=== PATIENT | female | born 1955 | race Caucasian/White ===

== ENCOUNTER → 2020-03-26 | Outpatient (CLI) | payer SELFPAY ==
[~2020-03-26] MED LIST: ALPRAZOLAM2 M1 PO; AMLODIPINE BESYL5 MG PO; BISA5EC PO; CEPH500 PO; DICL75ER PO; LISI5 PO; METFORMIN HCL500 M2 PO; METOPROLOL TART50 M1 PO; MS Contin15 MG PO; NARCAN4 M1; OXYC5 PO; ROSUVASTATIN CA10 MG PO
== END | disposition home or self-care (01) ==
LOC: LAB EV 16:09
DX: G89.4 Chronic pain syndrome (principal)
CPT/HCPCS: G0480

== ENCOUNTER → 2020-04-04 | Outpatient (CLI) | payer MEDICARE, SELFPAY ==
[2020-04-11 17:09] LABS: 6-ACETYLMORPHINE Not Detected (.)
== END | disposition home or self-care (01) ==
LOC: LAB EV 11:50
PROVIDERS: Family Medicine
DX: G89.4 Chronic pain syndrome (principal)
CPT/HCPCS: G0480

== ENCOUNTER 2020-04-06 22:55 | Inpatient (IN) | payer MEDICARE ==
[~2020-04-06] VITALS: Ht 160 cm; Wt 89.8 kg
[2020-04-06 23:21] LABS: Source, Urine Catheter
[2020-04-06 23:23] LABS: Blood, Urine 5+ (Neg); Glucose Qualitative, Urine Neg (Neg); Ketones, Urine Neg (Neg); Leukocyte Esterase, Urine 2+ (Neg); Nitrite, Urine Pos (Neg); Protein, Urine 3+ (Neg); Specific Gravity, Urine 1.015 (1.003-1.022); Urobilinogen, Urine 2+ (Normal)
[2020-04-06 23:25] LABS: Appearance, Urine Cloudy (Clear); Bilirubin, Urine 2+ (Neg); Color, Urine Orange (P-Yellow)
[2020-04-06 23:25] LABS: BASOPHILS ABSOLUTE AUTO 0.02 K/mm3 (0.00-0.23); BASOPHILS PERCENT AUTO 1 % (0-2); EOSINOPHILS ABSOLUTE AUTO 0.05 K/mm3 (0.00-0.68); EOSINOPHILS PERCENT AUTO 1 % (0-6); Hematocrit 40.7 % (33.0-51.0); Hemoglobin 12.9 g/dL (11.5-16.0); IMMATURE GRAN ABSOLUTE AUTO 0.05 K/mm3 (0.00-0.10); IMMATURE GRAN PERCENT AUTO 1 % (0-1); LYMPHOCYTES ABSOLUTE AUTO 0.89 K/mm3 (0.84-5.20); LYMPHOCYTES PERCENT AUTO 26 % (21-46); MONOCYTES ABSOLUTE AUTO 0.03 K/mm3 (0.16-1.47); MONOCYTES PERCENT AUTO 1 % (4-13); Mean Corpuscular HGB 27.6 pg (26.0-34.0); Mean Corpuscular HGB Conc 31.7 g/dL (31.5-36.5); Mean Corpuscular Volume 87 fL (80-100); Mean Platelet Volume 10.4 fL (9.1-12.4); NEUTROPHILS ABSOLUTE AUTO 2.41 K/mm3 (1.96-9.15); NEUTROPHILS PERCENT AUTO 70 % (41-73); Platelet Count 208 K/mm3 (150-400); RDW Coefficient Variation 13.5 % (11.7-14.2); RDW Standard Deviation 43.3 fL (35.1-46.3); Red Blood Cell Count 4.67 M/mm3 (3.80-5.20); White Blood Cell Count 3.45 K/mm3 (4.00-11.30)
[2020-04-06 23:32] LABS: Bacteria Mod /hpf; Red Blood Cells, Urine TNTC /hpf (0-2); Squamous Epithelial Cells Rare /hpf (Few)
[2020-04-06 23:42] LABS: Alanine Aminotransfer (ALT/SGP 37 U/L (12-78); Albumin, Blood 3.3 g/dL (3.4-5.0); Albumin/Globulin Ratio 0.9 (0.8-1.8); Alk Phos 99 U/L (50-136); Anion Gap 6 mmol/L (6-16); Aspartate Aminotrans (AST/SGOT 24 U/L (12-37); Bilirubin, Total 0.7 mg/dL (0.1-1.0); Blood Urea Nitrogen 10 mg/dL (8-24); Bun/Creatinine Ratio 14.7 (12.0-20.0); CO2, Blood 27 mmol/L (21-32); Calcium, Blood 8.4 mg/dL (8.5-10.1); Chloride, Blood 109 mmol/L (98-108); Creatinine, Blood 0.68 mg/dL (0.40-1.00); Globulin, Blood 3.6 g/dL (2.2-4.0); Glomerular Filtration Rate >60 (60-); Glucose, Blood 121 mg/dL (70-99); Magnesium, Blood 1.7 mg/dL (1.6-2.4); Potassium, Blood 3.7 mmol/L (3.5-5.5); Sodium, Blood 142 mmol/L (136-145); Total Protein, Blood 6.9 g/dL (6.4-8.2); Troponin I <0.015 ng/mL (0.000-0.040)
[2020-04-07 00:19] LABS: Influenza A, PCR Negative (NEGATIVE); Influenza B, PCR Negative (NEGATIVE); Resp Syncytial Virus, PCR Negative (NEGATIVE); SARS-Cov-2 (COVID-19) PCR, MMC Negative (NEGATIVE)
[2020-04-07] MEDS ORDERED: DICL75ER PO (01:56)
[2020-04-07] MEDS ORDERED: METFORMIN HCL500 M2 PO (01:59)
[2020-04-07] MEDS ORDERED: ROSUVASTATIN CA10 MG PO (02:01)
[2020-04-07] MEDS ORDERED: LISI5 PO (02:02)
[2020-04-07] MEDS ORDERED: AMLODIPINE BESYL5 MG PO (02:02)
[2020-04-07] MEDS ORDERED: METOPROLOL TART50 M1 PO (02:02)
[2020-04-07] MEDS ORDERED: OXYC5 PO (02:03)
[2020-04-07] MEDS ORDERED: MS Contin15 MG PO (02:03)
[2020-04-07] MEDS ORDERED: ALPRAZOLAM2 M1 PO (02:04)
[2020-04-07] MEDS ORDERED: NARCAN4 M1 (02:06)
[2020-04-07] MEDS ORDERED: BISA5EC PO (02:07)
--- NOTE | 2020-04-07 03:13 | NUR ---
PT TO ROOM 328 AT 0240. PT A/O X4. SBA TO BED. SON AT BEDSIDE. PT ORIENTED TO ROOM AND CALL LIGHT. MED WITH TORADOL FOR PAIN. IV FLUIDS STARTED PER ORDERS. DECLINED FLU VACCINE. PT VISITING WITH SON AT THIS TIME, CALL LIGHT IN REACH.
--- NOTE | 2020-04-07 04:57 | NUR ---
SHIFT SUMMARY PT ADMITTED TO ROOM 328 AT ABOUT 0240. A/O X4, SBA UP TO BSC. PT HAS CHRONIC BACK/NECK/JOINT PAIN AND CHRONIC HEADACHES. HEAT PACK PROVIDED FOR COMFORT. MEDICATED PER ORDERS. REPORTS ABD PAIN MOSTLY IN RLQ BUT ACROSS ABD. IV FLUIDS INFUSING PER ORDERS. DENIES NAUSEA AT THIS TIME. LACTIC RE-DRAW WAS ELEVATED FROM INITIAL LACTIC; PHYSICIAN NOTIFIED - NO NEW ORDERS AT THIS TIME. TELE IN PLACE - IN SINUS RHYTHM. PT RESTING AT THIS TIME WITH CALL LIGHT IN REACH.
[2020-04-07 07:53] LABS: Hematocrit 36.8 % (33.0-51.0); Hemoglobin 11.8 g/dL (11.5-16.0); Mean Corpuscular HGB 27.8 pg (26.0-34.0); Mean Corpuscular HGB Conc 32.1 g/dL (31.5-36.5); Mean Corpuscular Volume 87 fL (80-100); Mean Platelet Volume 10.4 fL (9.1-12.4); Platelet Count 212 K/mm3 (150-400); RDW Standard Deviation 44.4 fL (35.1-46.3); Red Blood Cell Count 4.24 M/mm3 (3.80-5.20); White Blood Cell Count 19.92 K/mm3 (4.00-11.30)
[2020-04-07 08:08] LABS: Alanine Aminotransfer (ALT/SGP 103 U/L (12-78); Albumin/Globulin Ratio 0.9 (0.8-1.8); Alk Phos 79 U/L (50-136); Anion Gap 11 mmol/L (6-16); Aspartate Aminotrans (AST/SGOT 85 U/L (12-37); Bilirubin, Total 0.5 mg/dL (0.1-1.0); Blood Urea Nitrogen 10 mg/dL (8-24); Bun/Creatinine Ratio 14.1 (12.0-20.0); CO2, Blood 21 mmol/L (21-32); Chloride, Blood 111 mmol/L (98-108); Creatinine, Blood 0.71 mg/dL (0.40-1.00); Globulin, Blood 3.2 g/dL (2.2-4.0); Glomerular Filtration Rate >60 (60-); Glucose, Blood 128 mg/dL (70-99); Potassium, Blood 3.7 mmol/L (3.5-5.5); Sodium, Blood 143 mmol/L (136-145); Total Protein, Blood 6.2 g/dL (6.4-8.2)
[2020-04-07 08:15] LABS: BAND PERCENT MAN 10 % (0-8); BASOPHILS ABSOLUTE MAN 0.19 K/mm3 (0.00-0.23); BASOPHILS PERCENT MAN 1 % (0-2); EOSINOPHILS PERCENT MAN 0 % (0-6); LYMPHOCYTES ABSOLUTE MAN 1.39 K/mm3 (0.84-5.20); LYMPHOCYTES PERCENT MAN 7 % (21-46); MONOCYTES ABSOLUTE MAN 0.99 K/mm3 (0.16-1.47); MONOCYTES PERCENT MAN 5 % (4-13); NEUTROPHILS ABSOLUTE MAN 17.33 K/mm3 (1.96-9.15); SEG NEUTROPHILS PERCENT MAN 77 % (41-73); TOTAL CELLS COUNTED 100
--- NOTE | 2020-04-07 11:21 | NUR ---
PT NOTIFIED ME THIS AM THAT SHE WAS UPSET WITH HER PCP AND IS NO LONGER WITH HIM, I ASKED PT IF SHE IS STAYING WITH [place] OR GOING TO ANOTHER CLINIC AND SHE REPORTS SHE NO LONGER WANTS [facility] TO BE HER PRIMARY CLINIC. PT REPORTS SHE WAS UPSET WITH THEM CHANGING HER PAIN MEDICATIONS AND ACCUSING HER OF TAKING THEM WRONG. PT REPORTS SHE IS NOW TAKING MS CONTIN 15MG Q12H AND OXYCODONE 5MG BID NEEDED FOR BREAKTHROUGH PAIN. SPOKE WITH DR MALIK WHO REPORTS GO AHEAD AND KEEP PT WITH HOSPITALIST AND TO GIVE HER RESOURCES FOR NEW PRIMARY. SPOKE WITH DR PULIDO WHO WILL BE TAKING OVER PT REGARDING HER PAIN, HOME MEDS RESUMED. IVF TO CHANGE TO LR AT 125ML/HR X1 DAY.
--- NOTE | 2020-04-07 17:02 | NUR ---
SHIFT SUMMARY- PT A/OX4. PT MEDICATED FOR CHRONIC BACK PAIN AND DYSURIA. PT STARTED BACK ON HOME MS CONTIN BID AND PRN OXYCODONE HOWEVER PT REPORTS FRUSTRATION THAT HER HOME PAIN REGIMINE WAS DECREASED BY HER NEW PCP. PT VERY ANXIOUS AND TEARFUL AT TIMES, PRN XANAX GIVEN X2 TODAY. LS CLEAR, ON RA. TELE SR AT 95, PT HYPOTENSION THIS AM BUT HAS RESOLVED T/O THE DAY. PT WITH GOOD URINE OUTPUT TODAY, CLEAR YELLOW URINE NOTED. LR RUNNING AT 125ML/HR. ECHO COMPLETED TODAY. SBA UP TO BSC. NO OTHER ACUTE CHANGES THIS SHIFT.
--- NOTE | 2020-04-08 04:41 | NUR ---
DELINQUENT ACCOUNT CLERK SUMMARY Patient crying hysterically to spouse on phone at start of shift last night. Mary described massive pain from neck to forehead. We discussed her frustration with not being able to find a new PCP and at the same time one who is not going to "Cut her off" the same dose medications she's been taking for the last 6 years. She feels like she is going through somewhat of a withdrawel. She indicated her flank pain pales in light of her returning back and leg pain. OF NOTE, HER H&P INDICATES SHE WAS TAKING 50MG OF MS CONTIN BID. HER RN RENAL DOSE WAS 30MG BID. Patient needs to find a new PCP as she states she no longer has one here in town.
--- NOTE | 2020-04-08 10:06 | NUR ---
DR VARGAS IN TO SEE PT.
[2020-04-08] MEDS ORDERED: CEPH500 PO (14:04)
--- NOTE | 2020-04-08 14:33 | NUR ---
Patient is lying in bed and alert. Patient tells me about her medical issues then goes through the long list of family and friends that have in recent years. Some of the deaths involve complicated grief and brought up many tears as she shared about it. Patient also talked about her Denominational belief system. I reinforce helpful atitudes and perspectives, and provide therapeutic listening, grief support, pastoral senior genetic counselor and prayer. Patient responds well and shows signs of increased peace and reduced stress. Patient verbalizes appreciation for the time and care.
--- NOTE | 2020-04-08 15:24 | NUR ---
DISCHARGE INSTRUCTIONS REVIEWED IN DEPTH WITH PT. IV DC'D INTACT. RX FAXED TO [facility] AND HARD SCRIPT GIVEN FOR XANAX, MS CONTIN, AND OXYCODONE. HARP REPAIRER ASSISTED PT WITH GETTTING PCP THROUGH [facility]. PO DIFLUCAN GIVEN PRIOR TO DISCHARGE. PT AWAITING RIDE HOME AT THIS TIME.
--- NOTE | 2020-04-08 16:11 | NUR ---
PT DC'D HOME WITH SPOUSE, ESCORTED OUT AT 1608.
== END 2020-04-08 16:08 | disposition home or self-care (01) | DRG 872 ==
LOC: ER 22:55 → MEDS 04-07 02:30
PROVIDERS: Emergency Medicine; ADMIT Internal Medicine
DX: A41.51 Sepsis due to Escherichia coli [E. coli] (principal); N10 Acute pyelonephritis; E11.9 Type 2 diabetes mellitus without complications; E86.0 Dehydration; Z20.828 Contact with and (suspected) exposure to other viral communicable diseases; R65.20 Severe sepsis without septic shock; I10 Essential (primary) hypertension; E78.5 Hyperlipidemia, unspecified; G89.29 Other chronic pain; Z79.84 Long term (current) use of oral hypoglycemic drugs
CPT/HCPCS: 0241U; 36415; 71045; 74176; 80053; 81001; 82947; 83605; 83690; 83735; 83880; 84145; 84484; 85025; 87077; 87086; 87186; 93005; 93010; 93306; 96361; 96365; 96375; 99285-25; A9270; A9270-GY; J0696; J1650; J1885; J3010; J7030; J7120